=== PATIENT | female | born 1975 | race Hispanic/Latino ===

== ENCOUNTER → 2020-03-18 | Day surgery (SDC) | payer BC, OTHER ==
[2020-03-15 09:15] LABS: BASOPHILS % 0.7 % (0.0-1.0); EOSINOPHILS # (AUTO) 0.1 (0.0-0.4); EOSINOPHILS % 1.5 % (0.0-6.0); HEMATOCRIT 40.8 % (34.2-44.1); HEMOGLOBIN 13.2 g/dL (12.0-16.0); LYMPHOCYTES % 33.3 % (18.0-39.1); MEAN CORPUSCULAR HEMOGLOBIN 27.4 pg (28-32); MEAN CORPUSCULAR HGB CONC 32.4 g/dL (31-35); MEAN CORPUSCULAR VOLUME 84.6 fL (81-99); MONOCYTES # (AUTO) 0.4 (0.2-0.8); NEUTROPHILS # (AUTO) 3.6 (2.1-6.9); NEUTROPHILS % 58.2 % (38.7-80.0); PLATELET COUNT 323 x10e3/uL (140-360); RED BLOOD COUNT 4.82 x10e6/uL (3.6-5.1); RED CELL DISTRIBUTION WIDTH 13.2 % (11.7-14.4)
[2020-03-15 09:33] LABS: ANION GAP 17.5 mmol/L (8-16); BLOOD UREA NITROGEN 10 mg/dL (7-26); BUN/CREATININE RATIO 13 (6-25); CALCIUM 9.5 mg/dL (8.4-10.2); CARBON DIOXIDE 27 mmol/L (22-29); CHLORIDE 96 mmol/L (98-107); CREATININE, SERUM 0.77 mg/dL (0.57-1.11); EST GLOMERULAR FILTRATION RATE > 60 ML/MIN (60-); GLUCOSE 137 mg/dL (74-118); POTASSIUM 3.5 mmol/L (3.5-5.1); SODIUM 137 mmol/L (136-145)
[2020-03-15 09:38] LABS: CLARITY,URINE HAZY (CLEAR); COLOR,URINE YELLOW (YELLOW)
[2020-03-15 09:39] LABS: BILIRUBIN,URINE NEGATIVE (NEGATIVE); KETONES,URINE NEGATIVE (NEGATIVE); LEUKOCYTE ESTERASE ,URINE NEGATIVE (NEGATIVE); NITRITE,URINE NEGATIVE (NEGATIVE); PROTEIN,URINE DIPSTICK NEGATIVE (NEGATIVE); URINE UROBILINOGEN 0.2 mg/dL (0.2 - 1)
[~2020-03-18] VITALS: Ht 152.4 cm; Wt 114.3 kg
[~2020-03-18] MED LIST: ACETAMINOPHEN 1000 MG/100 ML 100 ML IV ONE; ACETAMINOPHEN/CODEINE 300MG - 30MG TAB ONE; ASPIRIN81 MG; ATORVASTATIN CA20 MG PO; BUPIVACAINE 0.25%/EPI 30ML SDV INJ ONE; CEFAZOLIN SOD 1 GM VIAL ONE; DEXAMETHASONE SOD PHOS INJ 4 MG/ML VIAL ONE; FENTANYL CITRATE/PF 100MCG/2 ML INJ ONE; GLIPIZIDE5 MG PO; GLYCOPYRROLATE INJ 0.2 MG/ML VIAL ONE; HYDROCHLOROTHIA25 MG; KETOROLAC TROMETHAMINE 30 MG/ML VIAL ONE; LEVOTHYROXINE88 MCG PO; LIDOCAINE HCL 2% LOCAL INJ 5 ML SDV VIAL INJ ONE; LOSARTAN POTASS50 MG; METFORMIN HCL500 M1 PO; NEOSTIGMINE 1 MG/ML 10ML VIAL ONE; ONDANSETRON HCL INJ 2MG/ML 2ML 2 MG/ML VIAL ONE; PROPOFOL IV EMULSION 10 MG/ML 20 ML VIAL ONE; ROCURONIUM BROMIDE 10 MG/ML 5ML VIAL IV ONE; SERTRALINE HCL25 MG PO; SEVOFLURANE INHAL SOLN 250 ML PEN BTL ONE; TRULICITY1.5 MG/0.5 INJ; VITAMIN D250 MC1 PO
[2020-03-18 14:55] VITALS: BP 133/61
--- NOTE | 2020-03-18 19:41 | Operative Report ---
DATE OF PROCEDURE: 03/18/2020 SURGEON: Ivan Atkinson MD PREOPERATIVE DIAGNOSIS: Desires elective sterilization secondary to risks, adult onset diabetes mellitus, and chronic hypertension. POSTOPERATIVE DIAGNOSIS: Desires elective sterilization secondary to risks, adult onset diabetes mellitus, and chronic hypertension and adhesions on the left lower abdomen. TITLE OF PROCEDURE: Bilateral tubal cautery by laparoscopy, lysis of adhesions. ANESTHESIA: General with Dr. Garay. INDICATION FOR THE OPERATION: The patient is a 45-year-old 5, para 2-1-2-2 with adult onset diabetes, not well controlled, here for tubal ligation secondary to risks of threat to her health and to the health of her . She has high risk for anomalies, if she conceives with her diabetes not well controlled. She also has a history of abnormal uterine bleeding with no evidence of hyperplasia or malignancy on her biopsy. She is therefore taken to the operating room at this time for tubal ligation. FINDINGS AT SURGERY: There was normal uterus, right tube, and ovary. Left tube had adhesions, which were lysed. The left ovary was normal. DESCRIPTION OF PROCEDURE: The patient was taken operating room, placed on the table in supine position. General anesthesia was administered. The patient was placed in the lithotomy position. The perineum was prepared and draped in usual sterile manner as was the abdomen. Pelvic exam revealed a 4-week size anteverted uterus with no adnexal masses. A sponge stick was placed in the vagina for manipulation and then the bleach range operator changed gloves, and a small incision was made just inferior to the umbilicus in the midline. The Veress needle was inserted through the incision into the peritoneal cavity. A pneumoperitoneum was created by insufflation of 3 L of carbon dioxide gas and a filling pressure of 8-10 mmHg. The Veress needle was removed and the trocar was inserted through the incision into the peritoneal cavity. The laparoscope was placed with confirmation. The peritoneal cavity then entered. The 2nd trocar was placed in a midline suprapubic incision under direct visualization by laparoscopy. The trocar was removed and the probe was placed and the contents of the abdomen and pelvis were visualized with the findings of normal uterus slightly enlarged right tube and ovary. Normal left tube with adhesions and normal left ovary. At this point, attention was turned to the right tube. It was grasped in the mid ampullary portion, traced the fimbriated end for positive identification. The mid ampullary portion of the tube was then cauterized using the LigaSure instrument. Cautery was performed in two different spots and cautery was performed until it was apparent. The tube was completely occluded in those two spots and attention was turned to the left tube. It could not be easily isolated. There were adhesions of omentum to the anterior abdominal wall. These were lysed carefully and then there were some other adhesions of the tube to the abdominal sidewall and these were lysed as well. At this point, the left tube was grasped in mid ampullary portion, traced to the fimbriated end for positive identification. The mid ampullary portion of the tube was then cauterized in two places using the LigaSure instrument. Cautery was performed until it was apparent that the tube was completely occluded in both spots. At this point, the procedure was deemed terminated. All the air and instruments were removed from the abdomen. The skin incisions were then closed with inverted stitches of 4-0 Monocryl suture thus completing the procedure. There were no complications noted. Estimated blood losswas 10 mL. The patient tolerated the procedure well, was transferred from the operating room to the recovery room in stable condition. All the vaginal instruments were removed and the counts were correct after the procedure. MD HAILE Lauren/MODL /[id number]
== END | disposition home or self-care (01) ==
LOC: OR 09:38
PROVIDERS: ATTEND Obstetrics & Gynecology
DX: Z30.2 Encounter for sterilization (principal); N73.6 Female pelvic peritoneal adhesions (postinfective); E11.9 Type 2 diabetes mellitus without complications; I10 Essential (primary) hypertension; E78.5 Hyperlipidemia, unspecified; E03.9 Hypothyroidism, unspecified; E66.01 Morbid (severe) obesity due to excess calories; K58.9 Irritable bowel syndrome, unspecified; F32.9 Major depressive disorder, single episode, unspecified; F41.9 Anxiety disorder, unspecified; Z01.810 Encounter for preprocedural cardiovascular examination; Z01.812 Encounter for preprocedural laboratory examination; Z11.59 Encounter for screening for other viral diseases; Z79.82 Long term (current) use of aspirin; Z79.84 Long term (current) use of oral hypoglycemic drugs
CPT/HCPCS: 36415 ×2; 58670; 80048; 81003; 81025; 82948; 83036; 85025; 93005; J0131; J0690; J1100; J1885; J2001; J2405; J2704; J2710; J3010; U0002

== ENCOUNTER → 2021-08-29 | Day surgery (SDC) | payer BC ==
[~2021-08-29] MED LIST changes: -ACETAMINOPHEN 1000 MG/100 ML 100 ML IV ONE; -ACETAMINOPHEN/CODEINE 300MG - 30MG TAB ONE; -BUPIVACAINE 0.25%/EPI 30ML SDV INJ ONE; -CEFAZOLIN SOD 1 GM VIAL ONE; -DEXAMETHASONE SOD PHOS INJ 4 MG/ML VIAL ONE; +EUTHYROX50 MCG PO; +FIBER TABS625 MG PO; +FISH OIL 1,0001 EAC2 PO; +GABAPENTIN100 MG PO; -GLYCOPYRROLATE INJ 0.2 MG/ML VIAL ONE; +KETAMINE HCL INJ 50 MG/ML 10 ML VIAL ONE; -KETOROLAC TROMETHAMINE 30 MG/ML VIAL ONE; -LOSARTAN POTASS50 MG; +LOSARTAN POTASS50 MG PO; +MIDAZOLAM HCL 2 MG/2 ML VIAL ONE; +MULTI-VITAMIN1 EACH PO; -NEOSTIGMINE 1 MG/ML 10ML VIAL ONE; -ONDANSETRON HCL INJ 2MG/ML 2ML 2 MG/ML VIAL ONE; +OZEMPIC0.25 MG/0. SC; -ROCURONIUM BROMIDE 10 MG/ML 5ML VIAL IV ONE; -SEVOFLURANE INHAL SOLN 250 ML PEN BTL ONE; +ZINC PO; +ZOLPIDEM TARTRAT5 MG PO
[2021-08-29 13:40] VITALS: BP 132/70
== END | disposition home or self-care (01) ==
LOC: OR 09:41
PROVIDERS: ATTEND Internal Medicine Gastroenterology
DX: K21.9 Gastro-esophageal reflux disease without esophagitis (principal); D12.2 Benign neoplasm of ascending colon; D12.3 Benign neoplasm of transverse colon; K31.7 Polyp of stomach and duodenum; K29.50 Unspecified chronic gastritis without bleeding; K57.30 Diverticulosis of large intestine without perforation or abscess without bleeding; K44.9 Diaphragmatic hernia without obstruction or gangrene; K64.8 Other hemorrhoids; I10 Essential (primary) hypertension; E78.5 Hyperlipidemia, unspecified; E03.9 Hypothyroidism, unspecified; E11.9 Type 2 diabetes mellitus without complications; E66.01 Morbid (severe) obesity due to excess calories; Z91.041 Radiographic dye allergy status; Z01.810 Encounter for preprocedural cardiovascular examination; Z79.1 Long term (current) use of non-steroidal anti-inflammatories (NSAID); Z79.82 Long term (current) use of aspirin; Z79.84 Long term (current) use of oral hypoglycemic drugs; Z79.899 Other long term (current) drug therapy; Z68.42 Body mass index [BMI] 45.0-49.9, adult
CPT/HCPCS: 36415; 43239; 45384; 45385; 82948; 84702; 93005; J2001; J2250; J2704; J3010; 45378